=== PATIENT | female | born 1990 ===

== ENCOUNTER 2020-06-23 10:50 | Emergency (ER) | payer OTHER ==
[~2020-06-23] VITALS: Ht 160 cm; Wt 65.8 kg
== END 2020-06-23 14:02 | disposition home or self-care (01) ==
LOC: ER 10:50
DX: H11.431 Conjunctival hyperemia, right eye (principal); F17.200 Nicotine dependence, unspecified, uncomplicated
CPT/HCPCS: 99283

== ENCOUNTER → 2020-06-23 | Outpatient (CLI) | payer OTHER | END | disposition home or self-care (01) | LOC: LAB SHORT 17:00 → LAB 17:00 | DX: H10.9 Unspecified conjunctivitis (principal) | CPT/HCPCS: 87070; 87205 ==

== ENCOUNTER 2020-07-09 23:06 | Emergency (ER) | payer OTHER ==
[~2020-07-09] VITALS: Ht 157.5 cm; Wt 72.6 kg
== END 2020-07-10 00:53 | disposition left against medical advice (07) ==
LOC: ER 23:06
DX: Z53.21 Procedure and treatment not carried out due to patient leaving prior to being seen by health care provider (principal)
CPT/HCPCS: 93005; 93010

== ENCOUNTER → 2021-04-03 | Outpatient (CLI) | payer OTHER ==
[2021-04-05 06:16] LABS: CHLAMYDIA TRACHOMATIS, NAA Negative (Negative)
== END | disposition home or self-care (01) ==
LOC: LAB 11:58 → LAB SHORT 11:58
PROVIDERS: Family Medicine
DX: Z20.9 Contact with and (suspected) exposure to unspecified communicable disease (principal)
CPT/HCPCS: 87070; 87077; 87147; 87186; 87205; 87491; 87591